=== PATIENT | male | born 1955 | race Caucasian/White ===

== ENCOUNTER 2019-01-07 18:18 | Emergency (ER) | payer MEDICAID, SELFPAY ==
[2019-01-07 18:20] VITALS: BP 130/77; PULSE 81; RESP 14; TEMP 36.6; O2SAT 97; BMI 25.9
--- NOTE | 2019-01-07 18:37 | ED.DCSUM_ITS ---
- ER Visit Summary Date of Service: 01/07/19 Chief Complaint: Right leg pain History of Present Illness: The patient is a 63 M who tells me he has had right leg pain for years. Is been getting worse over the past couple of months. He is concerned about a DVT. He had 1 of these a few years ago. He is not on any blood thinning medications currently. He does have a history of neuropathy he also has a history of sciatic problems. Is not sure which of these is causing his issues. He is here for an ultrasound today Physical Examination: Right leg exam reveals no tenderness. There is no swelling. He has no skin changes. No palpable cords. Test Results: None performed Emergency Department Course and Treatment: Ultrasound is not available at this time. After shared decision making, the patient requested Lovenox. He will be given 1 dose here. He will come back in the morning for an ultrasound Treatment Plan: [] Disposition: Discharge Impression: Right leg pain This note was generated with Super[employer] dictation software. It may contain incorrect words, spelling, and punctuation that were not noted in review of the chart prior to signing ED Disposition - Plan for ED Patient: Referrals: Rupali Fitzgerald MD [Primary Care Provider] -
--- NOTE | 2019-01-07 18:38 | ED.DEP ---
ED Disposition - Plan for ED Patient: Disposition: Home or Assisted Living Instructions: KNEE PAIN, Uncertain Cause Referrals: Rupali Fitzgerald MD [Primary Care Provider] -
[2019-01-07] MEDS: Enoxaparin 80 MG/0.8 ML Syringe SC (18:47)
[2019-01-07 19:00] VITALS: RESP 18
== END 2019-01-07 19:03 | disposition home or self-care (01) ==
LOC: ED 18:51
PROVIDERS: Emergency Provider Emergency Medicine; Family Provider Internal Medicine; PCP Internal Medicine
DX: M79.604 Pain in right leg (principal); G62.9 Polyneuropathy, unspecified; Z79.899 Other long term (current) drug therapy; Z86.718 Personal history of other venous thrombosis and embolism; Z86.711 Personal history of pulmonary embolism
CPT/HCPCS: 96372; 99282

== ENCOUNTER → 2019-01-08 11:07 | Outpatient (CLI) | payer MEDICAID, SELFPAY ==
[2019-01-07 18:20] VITALS: BMI 25.9
--- NOTE | 2019-01-08 11:15 | VDLE_ITS ---
Reason For Study: Pain RLE RIGHT LEFT GSV is normal. CFV is compressible, spontaneous, phasic, CFV is compressible, spontaneous, phasic, competent, and demonstrates normal competent and demonstrates normal augmentation. augmentation. FV is compressible, spontaneous, phasic, competent and demonstrates normal augmentation. POP V is compressible, spontaneous, phasic, competent and demonstrates normal augmentation. T/P Trunk is compressible. PTV is compressible. RT PerV is compressible. Procedure Exam performed in department. A preliminary report was called and/or faxed to ED. Interpretation Summary Deep veins of the right lower extremity are patent and compressible segmentally. There is no evidence of right lower extremity deep vein thrombosis. Valvular competence appears intact within the proximal deep venous system on the right . The right greater saphenous vein appears patent and compressible segmentally. Ordering Physician: Scot Yu Referring Physician: Rupali Fitzgerald Performed By: Keyonna Enrique, MAKENZIE, RVT
== END ==
PROVIDERS: Family Provider Internal Medicine; PCP Internal Medicine; Referring Provider Emergency Medicine; Visit Provider Emergency Medicine
DX: M79.604 Pain in right leg (principal)
CPT/HCPCS: 93971

== ENCOUNTER 2019-01-08 11:49 | Emergency (ER) | payer MEDICAID, SELFPAY ==
[2019-01-07 18:20] VITALS: BMI 25.9
[2019-01-08 11:50] VITALS: BP 142/83; PULSE 74; RESP 16; TEMP 36.4; O2SAT 97; BMI 25.7
--- NOTE | 2019-01-08 12:28 | ED.DCSUM_ITS ---
- ER Visit Summary Date of Service: 01/08/19 Chief Complaint: Left sciatica History of Present Illness: The patient is a 63 M who presents to the emergency department with left-sided sciatica. Chronic problem for him. He has had numerous back injuries in the past. He states that his left sciatica has been starting to act up and he wants to get it treated before it becomes unbearable. He states that in the past he has been given 2 shots of an unknown medication in the emergency department which is helped. He has Flexeril at home. Patient is a very poor historian and even when he pulls out his medication list tells me is not up-to-date and is not sure which of the medicines supposed to be on there which are not. Currently he denies any bowel or bladder dysfunction. No change in muscle strength or sensation of distal leg. No fevers. No rashes. Describes the pain as starting in the left low back traveling into the buttock and down posteriorly to the foot. He has had back injections in the past but none recently. Patient was seen here last night with right-sided leg pain which he states he was concerned he had a DVT. He came back today because he wanted to discuss the left sciatica Physical Examination: Afebrile vital signs are stable Gen: Well-nourished well-developed Head: Normocephalic atraumatic Eyes: Perrl EOMI ENT: TMs clear no rhinorrhea moist mucous membranes Neck: Supple no lymphadenopathy no JVD nontender CVS: Regular rate rhythm no murmurs normal S1-S2 Respiratory: No distress clear to auscultation bilaterally chest nontender Abdomen: Soft nontender nondistended normal bowel sounds no masses Back: Tender to palpation left lower lumbar left gluteal/piriformis region there is no erythema or rashes. No fluctuant masses. Extremity: Nontender no edema Skin: Normal color no rash Neuro: alert orientated ?3 CN II-XII intact normal strength sensation Psych: Blunted affect Emergency Department Course and Treatment: This point I do not see any obvious signs of abscess or infectious process. I do not see any evidence of cauda equina. He has no neurologic deficits only pain. Patient will be treated with Toradol and Norflex. He is to follow-up with his primary care physician. Impression: 1. Left sciatica This note was generated with [employer] dictation software. It may contain incorrect words, spelling, and punctuation that were not noted in review of the chart prio r to signing ED Disposition - Plan for ED Patient: Disposition: Home or Assisted Living Instructions: BACK PAIN w/ SCIATICA Referrals: Rupali Fitzgerald MD [Primary Care Provider] - 3-5 Days
[2019-01-08] MEDS: Ketorolac 60 MG/2 ML Vial IM (12:41)
[2019-01-08] MEDS: Orphenadrine 60 MG/2 ML Ampul IM (12:41)
== END 2019-01-08 13:07 | disposition home or self-care (01) ==
LOC: ED 12:55
PROVIDERS: Emergency Provider Emergency Medicine; Family Provider Internal Medicine; PCP Internal Medicine
DX: M54.42 Lumbago with sciatica, left side (principal); G89.29 Other chronic pain; Z79.899 Other long term (current) drug therapy
CPT/HCPCS: 93971; 96372; 99282

== ENCOUNTER 2019-01-22 16:02 | Emergency (ER) | payer MEDICAID, SELFPAY ==
[2019-01-22 16:03] VITALS: BP 132/83; PULSE 82; RESP 18; TEMP 37.1; O2SAT 96; BMI 26.4
--- NOTE | 2019-01-22 16:38 | ED.VIS.GEN ---
History of Present Illness Chief Complaint: Complaint Detail of Chief Complaint: Dysuria and hematuria Informant: Patient Onset: Today Current Severity: Mild Maximum Severity: Mild Narrative: Patient states he urinated around 3:00 this afternoon and had some difficulty getting his stream started. He did have some mild dysuria. When cleaning himself off he did note some blood on the toilet paper. He has a known history of small kidney stones in his kidneys but has not passed a kidney stone in quite some time. He has not had back pain. He also has a history of BPH. - Past Medical History (1) History of BPH Status: Chronic (2) History of chronic back pain Status: Chronic (3) History of depression Status: Chronic (4) History of gastroesophageal reflux (GERD) Status: Chronic (5) History of pulmonary embolism Status: Chronic (6) History of seizure disorder Status: Chronic Past Medical History - Allergies and Home Meds Allergies/Adverse Reactions: Allergies celecoxib [From Celebrex] Allergy (Verified 01/22/19 16:03) Other BLEEDING FROM MOUTH cisapride monohydrate [From Propulsid] Allergy (Verified 01/22/19 16:03) Unknown loratadine [From Claritin] Allergy (Verified 01/22/19 16:03) Other BLOOD IN MUCUS aspirin Adverse Reaction (Verified 01/22/19 16:03) Nausea/Vom/Diarrhea oseltamivir phosphate [From Tamiflu] Adverse Reaction (Verified 01/22/19 16:03) Nausea Primary Care Physician: Rupali Fitzgerald MD [Primary Care Provider] - 5-7 Days Priyank Felix II [NON-STAFF] - As Needed Prior records reviewed: Yes Past Medical History: - - Reviewed Lives: With Family Smoking Status: Unknown if ever smoked Review of Systems General: Denies: Chills, Fever Cardiovascular: Denies: Chest pain Respiratory: Denies: Dyspnea, Cough Gastrointestinal: Reports: Abdominal pain. Denies: Nausea, Vomiting, Diarrhea Genitourinary: Reports: Dysuria, Hematuria Musculoskeletal: Denies: Myalgias, Back pain Neurological: Denies: Headache Physical Exam Vital Signs/Narrative: Vital Signs Temp Pulse Resp BP Pulse Ox 01/22/19 16:03 98.8 F 82 18 132/83 H 96 General: Well nourished, Well developed ENT: Moist mucous membranes Cardiovascular: Regular rate, Regular rhythm Respiratory: No distress, CTA bilaterally Abdomen: Soft, Hypoactive bowel sounds, - - Intimal suprapubic tenderness to palpation. Back: Negative for: CVA tenderness Skin: Normal color Neurological: Alert, Oriented x3 Diagnostic/Tx/Re-eval Impressions Abdomen/Pelvis CT 01/22/19 18:36 IMPRESSION: No acute or concerning findings. No etiology for hematuria identified. Individualized dose optimization techniques were used for this CT. at 1923 Reported and signed by: Alessandro Bridges MD Electronically Signed: Alessandro Bridges, at 19:22 EDT Tel , Service support , 01/22/19 18:36 Abdomen/Pelvis without Cont [CT] Stat Laboratory Results 01/22/19 17:05 Urine Color Yellow Urine Clarity Sl. Cloudy Urine pH 7.0 Ur Specific [place] 1.015 Urine Protein Negative Urine Glucose (UA) Normal Urine Ketones Negative Urine Occult Blood 50 H Urine Nitrite Negative Urine Bilirubin Negative Urine Urobilinogen Normal Ur Leukocyte Esterase Negative Urine RBC 0-5 SEEN Urine WBC 0 SEEN Ur Squamous Epith Cells 0 SEEN Urine Bacteria 0 SEEN Urine Mucus 0 SEEN - Medical Decision Making Patient initially had urinalysis obtained and it was unremarkable. Postvoid bladder scan revealed no residual urine. Patient has been up ambulating to the restroom approximately 5 times during his ED stay. Patient was rather insistent that he needed a CAT scan to ensure he is not passing a kidney stone, although I explained to him multiple times that he was not having significant pain and it would not change our treatment if he did have a small stone. CT returns with no acute abnormalities. Patient was advised to follow-up with his urologist in [place]. ED Disposition - Plan for ED Patient: Disposition: Home or Assisted Living Diagnosis: Hematuria Instructions: Hematuria Referrals: Rupali Fitzgerald MD [Primary Care Provider] - 5-7 Days Priyank Felix II [NON-STAFF] - As Needed
[2019-01-22 17:14] LABS: Bacteria 0 SEEN /hpf (None Seen); Color, Urine Yellow (Yellow); Glucose, Dipstick Normal (Normal); Ketone-Dipstick Negative (Negative); Leukocyte Esterase-Dipstick Negative /ul (Negative); Mucous, Urine 0 SEEN /hpf (<or=2+); Nitrite-Dipstick Negative (Negative); Occult Blood-Urine 50 /ul (Negative); Protein-Dipstick Negative (Negative); Specific Gravity, Urine 1.015 (1.002-1.030); Squamous Epithelial Cells - UA 0 SEEN /hpf (0-5); Urine Bilirubin Dipstick Negative (Negative); Urine Clarity Sl. Cloudy (Clear); Urine Urobilinogen Normal (Normal); White Blood Cells 0 SEEN /hpf (0-5)
[2019-01-22 17:18] LABS: Red Blood Cells-Urine 0-5 SEEN /hpf (0-5)
--- NOTE | 2019-01-22 18:36 | CT_ITS ---
HISTORY: HEMATURIA TECHNIQUE: Helically acquired images were obtained of the abdomen and pelvis without oral or IV contrast. A radiation dose optimization technique was used for this scan. COMPARISON: None FINDINGS: # of images incl. paperwork: [id number] LOWER CHEST: No acute or concerning findings lung bases. LIVER: Homogeneous. No focal mass. GALLBLADDER AND BILIARY TREE: No calcified gallstones. No pericholecystic edema. No intra- or extrahepatic biliary ductal dilation. KIDNEYS AND URETERS: Normal renal size and position. No hydronephrosis. Incidental small cyst lower pole right kidney. ADRENAL GLANDS: Non-enlarged. SPLEEN: Normal size, no mass. PANCREAS: No pancreatic inflammation or mass. BOWEL: Normal appendix. No obstruction or inflammation of the bowel. Sigmoid colon diverticulosis, no diverticulitis. Small hiatal hernia contains a portion of the gastric fundus. LYMPH NODES: No enlarged mesenteric or retroperitoneal lymph nodes. PERITONEUM: No ascites or free air. No other fluid collection. VESSELS: No abdominal aortic aneurysm. URINARY BLADDER: Unremarkable. REPRODUCTIVE ORGANS: No pelvic masses.Prostate normal size. ABDOMINAL WALL: No concerning findings. Small left inguinal hernia contains fat but no bowel. BONES: No acute osseous abnormality. CT/Abdomen/Pelvis without Cont IMPRESSION: No acute or concerning findings. No etiology for hematuria identified. Individualized dose optimization techniques were used for this CT. at 1923 Reported and signed by: Alessandro Bridges MD Electronically Signed: Alessandro Bridges, at 19:22 EDT Tel , Service support ,
[2019-01-22 20:52] VITALS: BP 134/102; PULSE 72; RESP 20; O2SAT 98
[2019-01-22] MEDS: Acetaminophen 500 MG Tablet 1000 MG PO (21:00)
== END 2019-01-22 21:07 | disposition home or self-care (01) ==
PROVIDERS: Emergency Provider Emergency Medicine; Family Provider Internal Medicine; PCP Internal Medicine
DX: R31.9 Hematuria, unspecified (principal); F32.9 Major depressive disorder, single episode, unspecified; K21.9 Gastro-esophageal reflux disease without esophagitis; N40.0 Benign prostatic hyperplasia without lower urinary tract symptoms; G40.909 Epilepsy, unspecified, not intractable, without status epilepticus; Z87.442 Personal history of urinary calculi; Z79.899 Other long term (current) drug therapy
CPT/HCPCS: 74176; 81001; 99282

== ENCOUNTER 2019-01-31 18:42 | Emergency (ER) | payer MEDICAID, SELFPAY ==
[2019-01-31 18:43] VITALS: BP 128/85; PULSE 86; RESP 16; TEMP 36.8; O2SAT 96; BMI 26.3
--- NOTE | 2019-01-31 20:48 | ED.DCSUM_ITS ---
- ER Visit Summary Date of Service: 01/31/19 Chief Complaint: Chicken stuck in throat History of Present Illness: The patient is a 63 M presenting with sensation of chicken stuck in throat. Patient states that he was eating chicken. He was trying to chew his food into small pieces. He felt the chicken get stuck in his throat. He called EMS. On arrival he now feels that the chicken has passed. He has a history of previous esophageal strictures requiring dilation. He has seen Dr. Cohen in the past. Physical Examination: Vitals are stable. Patient is afebrile. Alert no acute distress. HEENT exam is unremarkable. Neck is supple. Lungs are clear and equal bilaterally. Heart is regular rate and rhythm. Abdomen is soft nontender nondistended. Extremities are unremarkable. Skin is warm and dry. No focal neurologic deficit. Remainder of exam is unremarkable. Emergency Department Course and Treatment: Patient is able to tolerate p.o. He is now requesting discharge home. Advised to follow-up with his primary care physician. Advised to return to ED for worsening complaints. Disposition: Discharge home Impression: Esophageal foreign body, resolved This note was generated with [employer]ner dictation software. It may contain incorrect words, spelling, and punctuation that were not noted in review of the chart prior to signing ED Disposition - Plan for ED Patient: Disposition: Home or Assisted Living Instructions: ESOPHAGEAL FOREIGN BODY, Resolved Referrals: Rupali Fitzgerald MD [Primary Care Provider] -
--- NOTE | 2019-01-31 20:49 | ED.DEP ---
ED Disposition - Plan for ED Patient: Instructions: ESOPHAGEAL FOREIGN BODY, Resolved Referrals: Rupali Fitzgerald MD [Primary Care Provider] -
[2019-01-31 21:16] VITALS: BP 131/76; PULSE 81; RESP 18; O2SAT 97
--- NOTE | 2019-01-31 21:19 | ED.RN ---
THIS NURSE IN THE ROOM TO D/C PT. PT STATES WHAT DO YOU WANT I'M ON THE PHONE. THIS NURSE REVIEWED D/C INSTRUCTIONS WITH PT. PT VERBALIZED UNDERSTANDING OF INSTRUCTIONS. PT DENIES FURTHER NEEDS OR QUESTIONS AT THIS TIME
== END 2019-01-31 21:20 | disposition home or self-care (01) ==
PROVIDERS: Emergency Provider Emergency Medicine; Family Provider Internal Medicine; PCP Internal Medicine
DX: R09.89 Other specified symptoms and signs involving the circulatory and respiratory systems (principal); K22.2 Esophageal obstruction; Z79.899 Other long term (current) drug therapy
CPT/HCPCS: 99282

== ENCOUNTER → 2019-02-16 08:31 | Outpatient (CLI) | payer MEDICAID, SELFPAY ==
[2019-02-10 15:31] VITALS: BMI 26.3
--- NOTE | 2019-02-16 08:35 | RAD_ITS ---
STUDY: AIR CONTRAST UPPER GI SERIES . REASON FOR EXAM: Male, 63 years old. History of a prior is esophageal stricture with the dilatation. Hiatal hernia. FLUOROSCOPY TIME (if supplied): (0:55) minutes/seconds. 18 images were obtained. TECHNIQUE: SINGLE CONTRAST AND AIR CONTRAST FLUOROSCOPIC IMAGES. COMPARISON: None. FINDINGS: The cervical esophagus demonstrates normal motility without aspiration. Tertiary contractions of the mid and distal esophagus. There is no stricture or extrinsic mass effect. No intraluminal polypoid mass is identified. The patient was not able to ingest a 12 mm tablet of barium. The thoracic esophagus distends well without stricture or mucosal fold thickening. No mucosal ulcerations are identified. There is no extrinsic mass effect. There are no diverticula. No hiatal hernia or gastroesophageal reflux was identified. The stomach distends well without mucosal fold thickening or mucosal ulceration. There is no intraluminal mass. The duodenal bulb is freely distensible without deformity or ulceration. The duodenal sweep is normal in position and caliber. RAD/Upper GI w/BA Swallow IMPRESSION: Tertiary contractions of the mid and distal esophagus. No evidence of stricture formation. The patient was unable to ingest the 12 mm tablet of barium. Electronically Signed: Elmer Armenta, at 10:18 EDT , Service support ,
== END ==
PROVIDERS: Family Provider Internal Medicine; PCP Internal Medicine; Referring Provider Surgery; Visit Provider Surgery
DX: R13.10 Dysphagia, unspecified (principal); Z87.19 Personal history of other diseases of the digestive system
CPT/HCPCS: 74246

== ENCOUNTER → 2019-03-09 11:53 | Outpatient (CLI) | payer MEDICAID, SELFPAY ==
[2019-02-10 15:31] VITALS: BMI 26.3
[2019-03-12 23:12] LABS: Alternaria tenuis <0.10 kU/L (Class 0); Apple <0.10 kU/L (Class 0); Ash, White <0.10 kU/L (Class 0); Aspergillus fumigatus <0.10 kU/L (Class 0); Beef <0.10 kU/L (Class 0); Bermuda Grass <0.10 kU/L (Class 0); Birch <0.10 kU/L (Class 0); Black Walnut <0.10 kU/L (Class 0); Carrot <0.10 kU/L (Class 0); Cat Hair / Dander,Stand <0.10 kU/L (Class 0); Cedar, Mountain <0.10 kU/L (Class 0); Chicken <0.10 kU/L (Class 0); Cladosporium herbarum <0.10 kU/L (Class 0); Cockroach, American 0.21 kU/L (Class 0/I); Cottonwood <0.10 kU/L (Class 0); D farinae Mite <0.10 kU/L (Class 0); D pteronyssinus <0.10 kU/L (Class 0); Dog Epithelia <0.10 kU/L (Class 0); Egg, Whole <0.10 kU/L (Class 0); Elm, American White <0.10 kU/L (Class 0); Garlic <0.10 kU/L (Class 0); Gluten <0.10 kU/L (Class 0); Immunoglobulin E 42 IU/mL (6-495); Maple/Box Elder <0.10 kU/L (Class 0); Mulberry, White <0.10 kU/L (Class 0); Oak, White <0.10 kU/L (Class 0); Oat <0.10 kU/L (Class 0); Onion <0.10 kU/L (Class 0); Pea <0.10 kU/L (Class 0); Pecan <0.10 kU/L (Class 0); Penicillium Notatum <0.10 kU/L (Class 0); Pigweed, Rough <0.10 kU/L (Class 0); Potato, White <0.10 kU/L (Class 0); Ragweed, Short/Common <0.10 kU/L (Class 0); Rice <0.10 kU/L (Class 0); Russian Thistle <0.10 kU/L (Class 0); SESAME SEED <0.10 kU/L (Class 0); Sheep Sorrel <0.10 kU/L (Class 0); Strawberry <0.10 kU/L (Class 0); Sycamore, American <0.10 kU/L (Class 0); Timothy Grass <0.10 kU/L (Class 0); Tomato <0.10 kU/L (Class 0); Tuna <0.10 kU/L (Class 0); Wheat <0.10 kU/L (Class 0)
[2019-03-13 10:09] LABS: Milk (Cow) 0.16 kU/L (Class 0/I); Mouse Urine <0.10 kU/L (Class 0); Turkey <0.10 kU/L (Class 0)
== END ==
PROVIDERS: Family Provider Internal Medicine; PCP Internal Medicine; Referring Provider Otolaryngology Otolaryngology/Facial Plastic Surgery; Visit Provider Otolaryngology Otolaryngology/Facial Plastic Surgery
DX: T78.40XA Allergy, unspecified, initial encounter (principal)
CPT/HCPCS: 36415; 82785; 86003

== ENCOUNTER 2021-10-13 23:02 | Emergency (ER) | payer MEDICAID, SELFPAY ==
[2021-10-13 23:03] VITALS: BP 148/82; PULSE 81; RESP 17; TEMP 36.6; O2SAT 96; BMI 26.7
--- NOTE | 2021-10-13 23:18 | EX.ED.GUMALE ---
HPI History of Present Illness Chief Complaint: Complaint Narrative Narrative: 66-year-old male presenting with dysuria and hematuria. He states this started earlier today. Has had a couple of episodes of this. Patient does not feel ill. He has no flank pain or abdominal pain. He states he is eating and drinking normally. Is making normal urine and stool. He states he is on Eliquis for history of DVT in the right leg. He does not have history of UTIs. No history of kidney stones. [facility] Medical History GERD (gastroesophageal reflux disease) History of BPH History of chronic back pain History of depression History of gastroesophageal reflux (GERD) History of pulmonary embolism History of seizure disorder Home Medications cholecalciferol (vitamin D3) 1,000 unit PO DAILY 08/11/13 [History Last Taken Unknown] esomeprazole magnesium 20 mg PO BID 08/11/13 [History Last Taken Unknown] loperamide 2 mg PO Q4H PRN PRN 08/11/13 [History Last Taken Unknown] lovastatin 40 mg PO QHS 08/11/13 [History Last Taken Unknown] oxybutynin chloride 10 mg PO DAILY 08/11/13 [History Last Taken Unknown] phenytoin 100 mg PO TID 08/11/13 [History Last Taken 06/01/16 23:00] tamsulosin 0.4 mg PO DAILY 08/11/13 [History Last Taken Unknown] albuterol sulfate 2 puff INHALATION TID PRN 04/01/15 [History Last Taken 06/02/16 07:00] cyclobenzaprine 10 mg PO TID PRN #20 tab 03/01/16 [Rx Last Taken Unknown] loratadine 10 mg PO DAILY 03/01/16 [History Last Taken Unknown] ketotifen fumarate 1 - 2 drp EACH EYE BID 04/08/16 [History Last Taken Unknown] tobramycin-dexamethasone 1 drp EACH EYE PRN PRN 04/08/16 [History Last Taken Unknown] fluticasone propionate 2 puff INHALATION DAILY 04/21/16 [History Last Taken 06/02/16 07:00] benzonatate 100 mg PO TID PRN PRN 05/29/16 [History Last Taken Unknown] duloxetine 30 mg PO DAILY 12/31/16 [History Last Taken Unknown] cephalexin 500 mg PO Q12 #14 cap 10/14/21 [Rx Last Taken Unknown] Allergy/AdvReac Type Severity Reaction Status Date / Time celecoxib [From Celebrex] Allergy Other Verified 10/13/21 23:07 cisapride monohydrate Allergy Unknown Verified 10/13/21 23:07 [From Propulsid] loratadine [From Claritin] Allergy Other Verified 10/13/21 23:07 salsalate Allergy Vomiting Verified 10/13/21 23:07 aspirin AdvReac Nausea/Vom/ Verified 10/13/21 23:07 Diarrhea nabumetone [From Relafen] AdvReac Nausea Verified 10/13/21 23:08 oseltamivir phosphate AdvReac Nausea Verified 10/13/21 23:07 [From Tamiflu] Family History Brother Asthma Diabetes CAD (coronary artery disease) Seizures CVA (cerebral vascular accident) Mother Diabetes Surgical History s/p egd with dilitation S/P hemorrhoidectomy S/P tonsillectomy and adenoidectomy Social History Smoking Status: Never smoker alcohol intake: never ROS ROS ED Constitutional Constitutional ED: Denies chills or fever(s) Eyes Eyes: Denies blurry vision or change in vision ENT ENT ED: Denies rhinorrhea or sore throat Cardiovascular Cardiovascular: Denies chest pain or palpitations Respiratory/Chest Respiratory/Chest: Denies cough or dyspnea Gastrointestinal Gastrointestinal: Denies abdominal pain, diarrhea, nausea or vomiting Genitourinary Genitourinary ED: Reports dysuria, hematuria and urinary frequency Musculoskeletal Musculoskeletal: Denies arthralgias, back pain or myalgias Integumentary Denies rash Neurologic Neurologic: Denies headache(s) or paresthesias Psychiatric Psychiatric: Denies anxiety or depression EXAM Physical Exam Const Vital Signs: 10/13/21 23:03 Temperature 97.8 F Temperature Source Temporal Pulse Rate 81 Respiratory Rate 17 Blood Pressure 148/82 H Blood Pressure Mean 104 Pulse Ox 96 Oxygen Delivery Method Room Air Positive well nourished General Appearance ED: NAD; Negative for pallor HEENT Reports moist mucous membranes normocephalic and atraumatic Eyes PERRL and EOMs intact bilaterally Resp normal respiratory effort and clear to auscultation bilaterally Cardio regular rate and regular rhythm GI Palpation: soft no CVA tenderness Neuro oriented x3 and CN's II-XII intact bilaterally Sensorium / Orientation: alert Psych mental status grossly normal Skin General Skin Exam: Negative for jaundice or pallor MDM MDM MDM Narrative Medical decision making narrative: Patient with dysuria and mild hematuria. He does have urinary frequency as well. He does not have any flank or back pain. He does not feel ill. He does not have any nausea or diaphoresis. No history of kidney stones. No history of UTI. Urinalysis shows 10 occult blood, 0-5 WBCs with some contamination and 1+ bacteria. Since the patient is symptomatic I will send a urine culture and start him on Keflex. Clinically does not appear to have a kidney stone. He will need to follow-up with his primary care to ensure resolution. Impression: 1. Hematuria 2. Dysuria 3. Bladder infection Lab Data Labs: Laboratory Results - last 24 hr 10/14/21 00:10 Urine Color Yellow Urine Clarity Clear Urine pH 6.0 Ur Specific [place] 1.020 Urine Protein Negative Urine Glucose (UA) Normal Urine Ketones Negative Urine Occult Blood 10 H Urine Nitrite Negative Urine Bilirubin Negative Urine Urobilinogen Normal Ur Leukocyte Esterase Negative Urine RBC 0 SEEN Urine WBC 0-5 SEEN Ur Squamous Epith Cells 0-5 SEEN Urine Bacteria 1+ Urine Mucus 0 SEEN Discharge Plan Triage Chief Complaint: Complaint ED Provider: Lincoln Cruz Dx/Rx/DC Orders Instructions: ED Bladder Infection, Male (Adult) Prescriptions: New cephalexin 500 mg capsule 500 mg PO Q12 Qty: 14 RF: 0 No Action loperamide 2 MG capsule 2 mg PO Q4H PRN PRN (Reason: Diarrhea) RF: 0 phenytoin 50 MG tablet,chewable 100 mg PO TID RF: 0 tamsulosin 0.4 MG capsule 0.4 mg PO DAILY RF: 0 esomeprazole magnesium 40 MG capsule 20 mg PO BID RF: 0 lovastatin 20 MG tablet 40 mg PO QHS RF: 0 oxybutynin chloride 5 MG tablet 10 mg PO DAILY RF: 0 cholecalciferol (vitamin D3) 1,000 UNIT capsule 1,000 unit PO DAILY RF: 0 albuterol sulfate 1 INHALER inhaler 2 puff inhalation TID PRN (Reason: Sob &/Or Wheezing) RF: 0 loratadine 10 MG tablet 10 mg PO DAILY RF: 0 cyclobenzaprine 10 MG tablet 10 mg PO TID PRN (Reason: Muscle Spasm) Qty: 20 RF: 0 fluticasone propionate 1 INHALER inhaler 2 puff inhalation DAILY RF: 0 ketotifen fumarate 5 ML drops 1 - 2 drp EACH EYE BID RF: 0 tobramycin-dexamethasone 1 DROP drops,suspension 1 drp EACH EYE PRN PRN (Reason: irritation) RF: 0 benzonatate 100 MG capsule 100 mg PO TID PRN PRN (Reason: Cough) RF: 0 duloxetine 30 MG capsule,delayed release(DR/EC) 30 mg PO DAILY RF: 0 Primary Care Provider: Rupali Fitzgerald Referrals: Rupali Fitzgerald MD [Primary Care Provider] - Disposition Disposition: Home, Self Care
[2021-10-14 00:24] LABS: Mucous, Urine 0 SEEN /hpf (<or=2+); Red Blood Cells-Urine 0 SEEN /hpf (0-5)
[2021-10-14 00:27] LABS: Color, Urine Yellow (Yellow); Glucose, Dipstick Normal (Normal); Ketone-Dipstick Negative (Negative); Leukocyte Esterase-Dipstick Negative /ul (Negative); Nitrite-Dipstick Negative (Negative); Occult Blood-Urine 10 /ul (Negative); Protein-Dipstick Negative (Negative); Urine Bilirubin Dipstick Negative (Negative); Urine Clarity Clear (Clear); Urine Urobilinogen Normal (Normal)
[2021-10-14 00:54] LABS: Bacteria 1+ /hpf (None Seen); Squamous Epithelial Cells - UA 0-5 SEEN /hpf (0-5); White Blood Cells 0-5 SEEN /hpf (0-5)
[2021-10-14 01:21] VITALS: RESP 17
[2021-10-14] MEDS: Cephalexin 250 MG Capsule 500 MG PO (01:27)
[2021-10-14 01:29] VITALS: PULSE 74; RESP 16; TEMP 36.9; O2SAT 99
== END 2021-10-14 01:29 | disposition home or self-care (01) ==
PROVIDERS: Emergency Provider Student in an Organized Health Care Education/Training Program; PCP Internal Medicine; Visit Provider Student in an Organized Health Care Education/Training Program
DX: N30.91 Cystitis, unspecified with hematuria (principal); N40.1 Benign prostatic hyperplasia with lower urinary tract symptoms; R35.0 Frequency of micturition; K21.9 Gastro-esophageal reflux disease without esophagitis; G89.29 Other chronic pain; Z79.01 Long term (current) use of anticoagulants; Z79.899 Other long term (current) drug therapy; Z86.711 Personal history of pulmonary embolism; Z86.718 Personal history of other venous thrombosis and embolism
CPT/HCPCS: 81001; 87086; 99283

== ENCOUNTER 2022-08-23 14:47 | Emergency (ER) | payer MEDICAID, SELFPAY ==
[2022-08-23 14:49] VITALS: BP 153/80; PULSE 83; RESP 18; TEMP 36.7; O2SAT 96; BMI 27.3
[2022-08-23] MEDS: Mag Hydrox/Al Hydrox/Simeth 30 ML UDC PO (15:35)
[2022-08-23] MEDS: Pantoprazole Sodium 40 MG Tablet PO (15:35)
--- NOTE | 2022-08-23 15:43 | EDS_ITS ---
HPI History of Present Illness Chief Complaint: Foreign Body Informant: patient and EMS Onset/Context/Timing Onset: Hours (1-2) Context: Sudden Onset Timing: Continuous Quality: stuck/discomfort Location: lower mid-chest Current Severity: Mild Maximum Severity: Severe Worsened by: nothing Relieved by: nothing in particular Narrative Narrative: Patient states he was seen in [place] and he felt like so mething got stuck in his lower esophagus. No coughing choking acute dyspnea. States he has had this happen before, and states he has symptoms daily similar to this but not as bad, with eating. He states as a result of all of this he has had esophagus dilatations in the past but the last one was maybe 2 years ago. He sees a GI specialist in [place] with . He states prior to coming here by EMS after an hour or 2 of symptoms, he has drink some water and not vomited it up. [facility] Medical History GERD (gastroesophageal reflux disease) History of BPH History of chronic back pain History of depression History of gastroesophageal reflux (GERD) History of pulmonary embolism History of seizure disorder Home Medications cholecalciferol (vitamin D3) 25 mcg (1,000 unit) capsule 1,000 unit PO DAILY 08/11/13 [History Last Taken Unknown] esomeprazole magnesium 40 mg capsule,delayed release 20 mg PO BID 08/11/13 [History Last Taken Unknown] loperamide 2 mg capsule 2 mg PO Q4H PRN PRN Diarrhea 08/11/13 [History Last Taken Unknown] lovastatin 20 mg tablet 40 mg PO QHS 08/11/13 [History Last Taken Unknown] oxybutynin chloride 5 mg tablet 10 mg PO DAILY 08/11/13 [History Last Taken Unknown] phenytoin 50 mg chewable tablet 100 mg PO TID 08/11/13 [History Last Taken 06/01/16 23:00] tamsulosin 0.4 mg capsule 0.4 mg PO DAILY 08/11/13 [History Last Taken Unknown] albuterol sulfate 90 mcg/actuation aerosol inhaler 2 puff inhalation TID PRN Sob &/Or Wheezing 04/01/15 [History Last Taken 06/02/16 07:00] cyclobenzaprine 10 mg tablet 10 mg PO TID PRN Muscle Spasm #20 tabs 03/01/16 [Rx Last Taken Unknown] loratadine 10 mg tablet 10 mg PO DAILY 03/01/16 [History Last Taken Unknown] ketotifen fumarate 0.025 % (0.035 %) eye drops 1 - 2 drp EACH EYE BID 04/08/16 [History Last Taken Unknown] tobramycin 0.3 %-dexamethasone 0.1 % eye drops,suspension 1 drp EACH EYE PRN PRN irritation 04/08/16 [History Last Taken Unknown] fluticasone propionate 220 mcg/actuation HFA aerosol inhaler 2 puff inhalation DAILY 04/21/16 [History Last Taken 06/02/16 07:00] benzonatate 100 mg capsule 100 mg PO TID PRN PRN Cough 05/29/16 [History Last Taken Unknown] duloxetine 30 mg capsule,delayed release 30 mg PO DAILY 12/31/16 [History Last Taken Unknown] cephalexin 500 mg capsule 500 mg PO Q12 #14 caps 10/14/21 [Rx Last Taken Unknown] Allergy/AdvReac Type Severity Reaction Status Date / Time celecoxib [From Celebrex] Allergy Other Verified 08/23/22 14:48 cisapride monohydrate Allergy Unknown Verified 08/23/22 14:48 [From Propulsid] loratadine [From Claritin] Allergy Other Verified 08/23/22 14:48 salsalate Allergy Vomiting Verified 08/23/22 14:48 aspirin AdvReac Nausea/Vom/ Verified 08/23/22 14:48 Diarrhea nabumetone [From Relafen] AdvReac Nausea Verified 08/23/22 14:48 oseltamivir phosphate AdvReac Nausea Verified 08/23/22 14:48 [From Tamiflu] Family History Brother Asthma Diabetes CAD (coronary artery disease) Seizures CVA (cerebral vascular accident) Mother Diabetes Surgical History s/p egd with dilitation S/P hemorrhoidectomy S/P tonsillectomy and adenoidectomy Social History Smoking Status: Never smoker alcohol intake: never ROS ROS ED Constitutional Constitutional ED: Denies chills or fever(s) Cardiovascular Cardiovascular: Reports as per HPI and other Details: Chest pain as a result of esophagus discomfort Respiratory/Chest Respiratory/Chest: Denies cough or dyspnea Gastrointestinal Gastrointestinal: Reports vomiting; Denies abdominal pain or nausea Neurologic Neurologic: Denies headache(s), paresthesias or weakness EXAM Physical Exam Const Vital Signs: 08/23/22 14:49 08/23/22 14:51 Temperature 98.0 F Temperature Source Temporal Pulse Rate 83 Respiratory Rate 18 Respiratory Effort Normal Respiratory Pattern Normal Blood Pressure 153/80 H Blood Pressure Mean 104 Pulse Ox 96 Oxygen Delivery Method Room Air Positive well nourished and well developed General Appearance ED: well developed and NAD HEENT Reports moist mucous membranes Throat: posterior oropharynx normal Chest Wall inspection of chest normal and palpation of chest normal Resp normal respiratory effort and clear to auscultation bilaterally Cardio regular rate, regular rhythm and no murmurs Rate: Negative for tachycardic GI normal to inspection, nondistended, normoactive bowel sounds and non-tender Neuro oriented x3, CN's II-XII intact bilaterally, no sensory deficits noted and gait normal Psych Mood & Affect: anxious Skin no rashes or lesions noted and no wounds MDM MDM MDM Narrative Medical decision making narrative: Patient was able to drink some large gulps of Sprite without vomiting. We then gave him a GI cocktail and Protonix with some water. He drank those down without any difficulty and did feel little better. At this time he does not need emergency EGD. Discussed liquid diet and follow-up with his GI specialist, I gave him the name of ours as well if he wants. Discharge Plan Triage Chief Complaint: Foreign Body ED Provider: Carlos Cruz Dx/Rx/DC Orders Clinical Impression: Esophageal obstruction due to food impaction Instructions: ED Esophageal Foreign Body, Resolved, ED Full Liquid Diet Prescriptions: No Action loperamide 2 MG capsule 2 mg PO Q4H PRN PRN (Reason: Diarrhea) phenytoin 50 MG tablet,chewable 100 mg PO TID tamsulosin 0.4 MG capsule 0.4 mg PO DAILY esomeprazole magnesium 40 MG capsule 20 mg PO BID lovastatin 20 MG tablet 40 mg PO QHS Label Comments: CHOLESTEROL oxybutynin chloride 5 MG tablet 10 mg PO DAILY cholecalciferol (vitamin D3) 1,000 UNIT capsule 1,000 unit PO DAILY albuterol sulfate 1 INHALER inhaler 2 puff inhalation TID PRN (Reason: Sob &/Or Wheezing) loratadine 10 MG tablet 10 mg PO DAILY cyclobenzaprine 10 MG tablet 10 mg PO TID PRN (Reason: Muscle Spasm) Qty: 20 0RF fluticasone propionate 1 INHALER inhaler 2 puff inhalation DAILY ketotifen fumarate 5 ML drops 1 - 2 drp EACH EYE BID tobramycin-dexamethasone 1 DROP drops,suspension 1 drp EACH EYE PRN PRN (Reason: irritation) benzonatate 100 MG capsule 100 mg PO TID PRN PRN (Reason: Cough) duloxetine 30 MG capsule,delayed release(DR/EC) 30 mg PO DAILY cephalexin 500 mg capsule 500 mg PO Q12 Qty: 14 0RF Primary Care Provider: Rupali Fitzgerald Referrals: Rupali Fitzgerald MD [Primary Care Provider] - Friend,DO Isidro [Med Staff - Active Staff] - As soon as possible (Or your own GI DrAllen) Disposition Disposition: Home, Self Care
[2022-08-23 15:53] VITALS: BP 128/78; PULSE 78; RESP 16; TEMP 36.6; O2SAT 99
== END 2022-08-23 16:07 | disposition home or self-care (01) ==
PROVIDERS: Emergency Provider Emergency Medicine; PCP Internal Medicine; Visit Provider Emergency Medicine
DX: T18.128A Food in esophagus causing other injury, initial encounter (principal); R07.9 Chest pain, unspecified; K22.2 Esophageal obstruction; X58.XXXA Exposure to other specified factors, initial encounter
CPT/HCPCS: 99285

== ENCOUNTER 2022-09-05 08:40 | Emergency (ER) | payer MEDICAID, SELFPAY ==
[2022-09-05 08:41] VITALS: BP 154/82; PULSE 76; RESP 15; TEMP 36.7; O2SAT 98; BMI 27.5
--- NOTE | 2022-09-05 09:16 | EX.ED.VIS.UR ---
HPI HPI - URI History of Present Illness Chief Complaint: Ear Problem Detail of Chief Complaint: Decreased hearing left ear due to impacted earwax. Informant: patient Onset/Context/Timing Onset: Days Context: Gradual Onset Timing: Continuous Current Severity: Mild Maximum Severity: Mild Narrative Narrative: 66-year-old male history of excessive earwax in the past. He has been using eardrops but says he is having trouble hearing out of his left ear with some mild discomfort. Denies any drainage charge. He has had this happen before with excessive wax. Prior similar symptoms: Yes Recent Illness/Hospitalization: No ROS ROS ED ROS Narrative Denies recent illness. Review of Systems ROS Unobtainable: Denies due to encephalopathy Constitutional Constitutional ED: Denies chills or fever(s) Eyes Eyes: Denies blurry vision ENT ENT ED: Reports ear pain; Denies rhinorrhea or sore throat Cardiovascular Cardiovascular: Denies chest pain Respiratory/Chest Respiratory/Chest: Denies cough Gastrointestinal Gastrointestinal: Denies abdominal pain Genitourinary Genitourinary ED: Denies dysuria Musculoskeletal Musculoskeletal: Denies arthralgias Integumentary Denies abscess Neurologic Neurologic: Denies headache(s) Psychiatric Psychiatric: Denies anxiety Endocrine Endocrinology: Denies cold intolerance Hematologic/Lymphatic Hematologic/Lymphatic: Denies easy bleeding Allergic/Immunologic Allergic/Immunologic ED: Denies mouth swelling or tongue swelling [facility] Medical History GERD (gastroesophageal reflux disease) History of BPH History of chronic back pain History of depression History of gastroesophageal reflux (GERD) History of pulmonary embolism History of seizure disorder Home Medications cholecalciferol (vitamin D3) 25 mcg (1,000 unit) capsule 1,000 unit PO DAILY 08/11/13 [History Last Taken Unknown] esomeprazole magnesium 40 mg capsule,delayed release 20 mg PO BID 08/11/13 [History Last Taken Unknown] loperamide 2 mg capsule 2 mg PO Q4H PRN PRN Diarrhea 08/11/13 [History Last Taken Unknown] lovastatin 20 mg tablet 40 mg PO QHS 08/11/13 [History Last Taken Unknown] oxybutynin chloride 5 mg tablet 10 mg PO DAILY 08/11/13 [History Last Taken Unknown] phenytoin 50 mg chewable tablet 100 mg PO TID 01/24/14 [History Last Taken 06/01/16 23:00] tamsulosin 0.4 mg capsule 0.4 mg PO DAILY 08/11/13 [History Last Taken Unknown] albuterol sulfate 90 mcg/actuation aerosol inhaler 2 puff inhalation TID PRN Sob &/Or Wheezing 04/01/15 [History Last Taken 06/02/16 07:00] cyclobenzaprine 10 mg tablet 10 mg PO TID PRN Muscle Spasm #20 tabs 03/01/16 [Rx Last Taken Unknown] loratadine 10 mg tablet 10 mg PO DAILY 03/01/16 [History Last Taken Unknown] ketotifen fumarate 0.025 % (0.035 %) eye drops 1 - 2 drp EACH EYE BID 04/08/16 [History Last Taken Unknown] tobramycin 0.3 %-dexamethasone 0.1 % eye drops,suspension 1 drp EACH EYE PRN PRN irritation 04/08/16 [History Last Taken Unknown] fluticasone propionate 220 mcg/actuation HFA aerosol inhaler 2 puff inhalation DAILY 04/21/16 [History Last Taken 06/02/16 07:00] benzonatate 100 mg capsule 100 mg PO TID PRN PRN Cough 05/29/16 [History Last Taken Unknown] duloxetine 30 mg capsule,delayed release 30 mg PO DAILY 12/31/16 [History Last Taken Unknown] cephalexin 500 mg capsule 500 mg PO Q12 #14 caps 10/14/21 [Rx Last Taken Unknown] Allergy/AdvReac Type Severity Reaction Status Date / Time celecoxib [From Celebrex] Allergy Other Verified 09/05/22 08:43 cisapride monohydrate Allergy Unknown Verified 09/05/22 08:43 [From Propulsid] loratadine [From Claritin] Allergy Other Verified 09/05/22 08:43 salsalate Allergy Vomiting Verified 09/05/22 08:43 aspirin AdvReac Nausea/Vom/ Verified 09/05/22 08:43 Diarrhea nabumetone [From Relafen] AdvReac Nausea Verified 09/05/22 08:43 oseltamivir phosphate AdvReac Nausea Verified 09/05/22 08:43 [From Tamiflu] Family History Brother Asthma Diabetes CAD (coronary artery disease) Seizures CVA (cerebral vascular accident) Mother Diabetes Surgical History s/p egd with dilitation S/P hemorrhoidectomy S/P tonsillectomy and adenoidectomy Social History Smoking Status: Never smoker alcohol intake: never EXAM Physical Exam Narrative Exam Narrative: 66-year-old male vital signs stable afebrile. Does not look septic toxic or in distress. H EENT exam small wax in the right being still see his eardrum. Left ear canal is impacted and completely obstructed by wax. Posterior pharynx unremarkable. Neck nontender no lymphadenopathy. Lungs clear to auscultation. Heart regular rhythm. Otherwise exam unremarkable. Const Vital Signs: 09/05/22 08:41 Temperature 98.0 F Temperature Source Temporal Pulse Rate 76 Respiratory Rate 15 Blood Pressure 154/82 H Blood Pressure Mean 106 Pulse Ox 98 Oxygen Delivery Method Room Air Positive well nourished and well developed; Negative for obese or contractures General Appearance ED: well developed and NAD; Negative for contractures, cyanotic, diaphoretic or pallor Nutritional Appearance: Negative for obese HEENT Reports moist mucous membranes; Denies dry mucous membranes normocephalic and atraumatic; Negative for scalp tenderness Face and Sinus: Negative for sinus tenderness Mouth ED: No dry mucous membranes Mouth: No dry mucous membranes Throat: posterior oropharynx normal; Negative for tonsils abnormal Eyes PERRL and EOMs intact bilaterally General Eye ED: Negative for pale conjunctiva or scleral icterus Neck no lymphadenopathy, supple, no meningeal signs and no JVD General: Negative for anterior neck swelling or lymphadenopathy Resp normal respiratory effort and clear to auscultation bilaterally Effort and Inspection: Negative for retractions Auscultation: Negative for rales, rhonchi or wheezes Cardio S1 normal heart sound, S2 normal heart sound and no murmurs Rate: regular rate Rhythm: regular rhythm GI non-tender, non-distended and no masses Inspection: Negative for abdominal distention Auscultation: normoactive bowel sounds Palpation: soft; Negative for tender or guarding Back/Spine no CVA tenderness and normal ROM General Back: Negative for CVA tenderness Cervical Spine: Negative for cervical spine tenderness Thoracic Spine / Upper Back: Negative for thoracic spinal tenderness Lumbar Spine / Lower Back: Negative for lumbar spinal tenderness Sacrum: Negative for tenderness Extremity normal to inspection and full ROM General Extremety ED: Negative for cyanosis, tenderness or other findings General Extremity: Negative for cyanosis or other findings Neuro oriented x3 and CN's II-XII intact bilaterally Sensorium / Orientation: alert, oriented to person, oriented to place and oriented to time; Negative for orientation impaired, lethargic or stuporous Motor Exam: strength 5/5 throughout Psych mental status grossly normal Appearance: Negative for other Attitude: No agitated Mood & Affect: Negative for depressed, anxious or tearful Skin General Skin Exam: Negative for jaundice or pallor Lesions: no lesions Rashes: no rashes MDM MDM MDM Narrative Medical decision making narrative: 66-year-old male left ear canal cerumen impaction. Will attempt to irrigated out. It does appear to be the sticky type of wax which may be more difficult for unable to resolve this will have him follow-up with ENT to have the earwax irrigated. Discharge Plan Triage Chief Complaint: Ear Problem ED Provider: Kendall Juan Dx/Rx/DC Orders Clinical Impression: Hearing loss of left ear due to cerumen impaction, Excess ear wax Instructions: Impacted Earwax Prescriptions: No Action loperamide 2 MG capsule 2 mg PO Q4H PRN PRN (Reason: Diarrhea) phenytoin 50 MG tablet,chewable 100 mg PO TID tamsulosin 0.4 MG capsule 0.4 mg PO DAILY esomeprazole magnesium 40 MG capsule 20 mg PO BID lovastatin 20 MG tablet 40 mg PO QHS Label Comments: CHOLESTEROL oxybutynin chloride 5 MG tablet 10 mg PO DAILY cholecalciferol (vitamin D3) 1,000 UNIT capsule 1,000 unit PO DAILY albuterol sulfate 1 INHALER inhaler 2 puff inhalation TID PRN (Reason: Sob &/Or Wheezing) loratadine 10 MG tablet 10 mg PO DAILY cyclobenzaprine 10 MG tablet 10 mg PO TID PRN (Reason: Muscle Spasm) Qty: 20 0RF fluticasone propionate 1 INHALER inhaler 2 puff inhalation DAILY ketotifen fumarate 5 ML drops 1 - 2 drp EACH EYE BID tobramycin-dexamethasone 1 DROP drops,suspension 1 drp EACH EYE PRN PRN (Reason: irritation) benzonatate 100 MG capsule 100 mg PO TID PRN PRN (Reason: Cough) duloxetine 30 MG capsule,delayed release(DR/EC) 30 mg PO DAILY cephalexin 500 mg capsule 500 mg PO Q12 Qty: 14 0RF Primary Care Provider: Rupali Fitzgerald Referrals: Rupali Fitzgerald MD [Primary Care Provider] - Maximiliano Guillen MD [Med Staff - Active Staff] - As soon as possible Activity Restrictions/Additional Instructions: Effusion your eardrops. Call and follow-up with the ENT doctor either Dr. Maximiliano Guillen or Dr. Edu Garcia to have your ear irrigated to get the wax out. Disposition Disposition: Home, Self Care
--- NOTE | 2022-09-05 10:37 | ED.RN ---
pt kept complaining of the way we irrigate. pt wanted it to be sucked out.
== END 2022-09-05 10:39 | disposition home or self-care (01) ==
PROVIDERS: Emergency Provider Emergency Medicine; PCP Internal Medicine; Visit Provider Emergency Medicine
DX: H61.22 Impacted cerumen, left ear (principal); Z79.899 Other long term (current) drug therapy
CPT/HCPCS: 99283

== ENCOUNTER 2023-04-23 09:49 | Emergency (ER) | payer MEDICARE, MEDICAID, SELFPAY ==
[2023-04-23 09:51] VITALS: BP 160/78; PULSE 84; RESP 14; TEMP 36.4; O2SAT 98; BMI 27.4
--- NOTE | 2023-04-23 10:21 | CT_ITS ---
STUDY: CT SOFT TISSUE NECK WITH CONTRAST REASON FOR EXAM: Male, 67 years old. Painful swallowing RADIATION DOSAGE (If Supplied By Facility): CTDIvol = ( 15.19 ) mGy, DLP = ( 497.16 ) mGycm TECHNIQUE: The patient was scanned in a multi-detector CT scanner. High resolution transaxial imaging was performed following intravenous administration of IV 75mL [id number]-370. Sagittal and coronal images were reconstructed. Individualized dose optimization techniques were used for this CT. COMPARISON: None. FINDINGS: Atherosclerotic plaque calcification of the aortic arch. Normal bilateral parotid glands. Normal bilateral publishing editor spaces. Normal bilateral parapharyngeal spaces. Normal bilateral carotid spaces. Normal bilateral sublingual and submandibular glands and spaces. Normal visualized nasopharynx. Normal retropharyngeal space. Normal perivertebral space. Normal visualized bilateral faucial tonsils. The visualized tongue, tongue base and oropharynx are normal. The visualized cervical lymph nodes (levels I-) are within normal size limits, and maintain normal morphology. There is no demonstrated solid or cystic mass lesion. There is no abnormal contrast enhancement. Normal epiglottis, bilateral vallecula and hypopharynx. The pre-epiglottic and paraglottic adipose spaces are normal. Normal visualized bilateral piriform sinuses, aryepiglottic folds, vocal cords, and arytenoid-cricoid articulations. Normal subglottic trachea. Normal bilateral lobes of the thyroid gland. Normal visualized pulmonary apices. Small mucosal polyp or retention cyst along the inferior medial wall of the left maxillary sinus. There is degenerative changes of the cervical spine. CT/Soft Tissue Neck WITH Contrast IMPRESSION: No acute abnormality is seen. Electronically Signed: Elmer Armenta MD at 12:39 EDT ,
--- NOTE | 2023-04-23 10:28 | EDS_ITS ---
HPI History of Present Illness Chief Complaint: Sore Throat Informant: patient Narrative Narrative: 67-year-old male presenting to the emergency room with the chief complaint of sore throat. Patient states that just over a week ago he developed sneezing congestion headache and cough. He was seen at urgent care was told that he may have a sinus infection and was started on amoxicillin. He went back today noting that those symptoms are improved but now he has a sore throat. He states that his throat feels dry and its hard for him to swallow. He states he chronically has issues swallowing due to reflux and sometimes things get stuck. He states that he was sent here for a possible scope. He tried to call ENT but was unable to secure a follow-up appointment until early next week he denies any fever.. [facility] Medical History GERD (gastroesophageal reflux disease) History of BPH History of chronic back pain History of depression History of gastroesophageal reflux (GERD) History of pulmonary embolism History of seizure disorder Home Medications cholecalciferol (vitamin D3) 25 mcg (1,000 unit) capsule 1,000 unit PO DAILY 08/11/13 [History Last Taken Unknown] esomeprazole magnesium 40 mg capsule,delayed release 20 mg PO BID 08/11/13 [History Last Taken Unknown] loperamide 2 mg capsule 2 mg PO Q4H PRN PRN Diarrhea 08/11/13 [History Last Taken Unknown] lovastatin 20 mg tablet 40 mg PO QHS 08/11/13 [History Last Taken Unknown] oxybutynin chloride 5 mg tablet 10 mg PO DAILY 08/11/13 [History Last Taken Unknown] phenytoin 50 mg chewable tablet 100 mg PO TID 08/11/13 [History Last Taken 06/01/16 23:00] tamsulosin 0.4 mg capsule 0.4 mg PO DAILY 08/11/13 [History Last Taken Unknown] albuterol sulfate 90 mcg/actuation aerosol inhaler 2 puff inhalation TID PRN Sob &/Or Wheezing 04/01/15 [History Last Taken 06/02/16 07:00] cyclobenzaprine 10 mg tablet 10 mg PO TID PRN Muscle Spasm #20 tabs 03/01/16 [Rx Last Taken Unknown] loratadine 10 mg tablet 10 mg PO DAILY 03/01/16 [History Last Taken Unknown] ketotifen fumarate 0.025 % (0.035 %) eye drops 1 - 2 drp EACH EYE BID 04/08/16 [History Last Taken Unknown] tobramycin 0.3 %-dexamethasone 0.1 % eye drops,suspension 1 drp EACH EYE PRN PRN irritation 04/08/16 [History Last Taken Unknown] fluticasone propionate 220 mcg/actuation HFA aerosol inhaler 2 puff inhalation DAILY 04/21/16 [History Last Taken 06/02/16 07:00] benzonatate 100 mg capsule 100 mg PO TID PRN PRN Cough 05/29/16 [History Last Taken Unknown] duloxetine 30 mg capsule,delayed release 30 mg PO DAILY 12/31/16 [History Last Taken Unknown] cephalexin 500 mg capsule 500 mg PO Q12 #14 caps 10/14/21 [Rx Last Taken Unknown] Allergy/AdvReac Type Severity Reaction Status Date / Time celecoxib [From Celebrex] Allergy Other Verified 04/23/23 09:51 cisapride monohydrate Allergy Unknown Verified 04/23/23 09:51 [From Propulsid] loratadine [From Claritin] Allergy Other Verified 04/23/23 09:51 salsalate Allergy Vomiting Verified 04/23/23 09:51 aspirin AdvReac Nausea/Vom/ Verified 04/23/23 09:51 Diarrhea nabumetone [From Relafen] AdvReac Nausea Verified 04/23/23 09:51 oseltamivir phosphate AdvReac Nausea Verified 04/23/23 09:51 [From Tamiflu] Family History Brother Asthma Diabetes CAD (coronary artery disease) Seizures CVA (cerebral vascular accident) Mother Diabetes Surgical History s/p egd with dilitation S/P hemorrhoidectomy S/P tonsillectomy and adenoidectomy Social History Smoking Status: Never smoker alcohol intake: never ROS ROS ED Constitutional Constitutional ED: Denies chills or weight loss Eyes Eyes: Denies change in vision or diplopia ENT ENT ED: Reports rhinorrhea, sore throat and other Details: Sneezing difficulty swallowing ; Denies ear pain Cardiovascular Cardiovascular: Denies chest pain, orthopnea, palpitations or racing heartbeat Respiratory/Chest Respiratory/Chest: Denies cough, dyspnea or orthopnea Gastrointestinal Gastrointestinal: Denies abdominal pain, diarrhea, nausea or vomiting Genitourinary Genitourinary ED: Denies dysuria, hematuria or urinary frequency Musculoskeletal Musculoskeletal: Denies arthralgias or myalgias Integumentary Denies abscess or rash Neurologic Neurologic: Reports headache(s); Denies weakness Psychiatric Psychiatric: Denies anxiety, depression, suicidal ideation or suicidal thoughts Endocrine Endocrinology: Denies polydipsia, polyphagia or polyuria Allergic/Immunologic Allergic/Immunologic ED: Denies mouth swelling, tongue swelling or urticaria EXAM Physical Exam Const Vital Signs: 04/23/23 09:51 Temperature 97.6 F L Temperature Source Temporal Pulse Rate 84 Respiratory Rate 14 Blood Pressure 160/78 H Blood Pressure Mean 105 Pulse Ox 98 Oxygen Delivery Method Room Air Positive well nourished and well developed General Appearance ED: well developed HEENT Reports normocephalic, head/scalp atraumatic, TM's clear and moist mucous membranes HEENT Narrative: Patient has pharyngeal erythema. There is swelling of the soft palate and uvula. Patient appears to be handling secretions normally. There is no stridor. Tympanic Membrane ED: Yes TM's clear Eyes PERRL and EOMs intact bilaterally Neck no lymphadenopathy, supple and no JVD Resp normal respiratory effort and clear to auscultation bilaterally Cardio regular rate, regular rhythm and no murmurs GI normal to inspection, nondistended, normoactive bowel sounds and non-tender Palpation: soft Back/Spine no CVA tenderness and normal ROM Extremity normal to inspection General Extremety ED: Negative for edema General Extremity: Negative for edema Neuro oriented x3 and CN's II-XII intact bilaterally Sensorium / Orientation: alert Motor Exam: strength 5/5 throughout Psych mental status grossly normal Mood & Affect: Negative for depressed or tearful Skin no rashes or lesions noted and no wounds MDM MDM MDM Narrative Medical decision making narrative: Clinically the patient is presenting either as a viral URI with uveitis versus environmental allergen with uveitis. White count is normal at 7.3. I did check a Monospot as the symptoms have been present for a week and this was negative. His strep COVID influenza and RSV were ordered earlier this week by the urgent care and returned negative so I did not feel compelled to repeat those. He appears well-hydrated. Patient is very worried about an obstruction in his throat. A CT of the neck with IV contrast was obtained which does not demonstrate any abscess or impending obstruction. I gave him a dose of Decadron. At this point he is already discontinued his antibiotic. I do think that this is reasonable. I would recommend him continuing Benadryl and Pepcid at home for 2 days. He was advised on cold liquids and continued use of his throat lozenges. Lab Data Attestation: I reviewed the patient's lab results. Labs: Laboratory Results - last 24 hr 04/23/23 10:30 WBC 7.3 RBC 4.79 Hgb 15.0 Hct 44.1 MCV 92.1 MCH 31.3 MCHC 34.0 RDW Std Deviation 42.5 RDW Coeff of [place] 12.6 Plt Count 197 MPV 11.4 Immature Gran % (Auto) 0.300 Neut % (Auto) 78.4 H Lymph % (Auto) 9.1 L [place] % (Auto) 8.6 Eos % (Auto) 2.6 Baso % (Auto) 1.0 Absolute Neuts (auto) 5.7 Absolute Lymphs (auto) 0.66 L Nucleated RBC % 0 Sodium 142 Potassium 3.3 L Chloride 107 Carbon Dioxide 32.0 Anion Gap 3 L BUN 14 Creatinine 0.72 Estim Creat Clear Calc 112.27 Est GFR (MDRD) Af Amer 140 Est GFR (MDRD) Non-Af 116 BUN/Creatinine Ratio 19.3 Glucose 126 H Calcium 8.7 Monoscreen Negative Radiography Diagnostic Testing: Clinical Impression(s) from Imaging Studies Soft Tissue Neck CT 04/23/23 10:21 IMPRESSION: No acute abnormality is seen. Electronically Signed: Elmer Armenta MD at 12:39 EDT , Discharge Plan Triage Chief Complaint: Sore Throat ED Provider: Román Rivera Dx/Rx/DC Orders Prescriptions: No Action loperamide 2 MG capsule 2 mg PO Q4H PRN PRN (Reason: Diarrhea) phenytoin 50 MG tablet,chewable 100 mg PO TID tamsulosin 0.4 MG capsule 0.4 mg PO DAILY esomeprazole magnesium 40 MG capsule 20 mg PO BID lovastatin 20 MG tablet 40 mg PO QHS Patient Comments: CHOLESTEROL oxybutynin chloride 5 MG tablet 10 mg PO DAILY cholecalciferol (vitamin D3) 1,000 UNIT capsule 1,000 unit PO DAILY albuterol sulfate 1 INHALER inhaler 2 puff inhalation TID PRN (Reason: Sob &/Or Wheezing) loratadine 10 MG tablet 10 mg PO DAILY cyclobenzaprine 10 MG tablet 10 mg PO TID PRN (Reason: Muscle Spasm) Qty: 20 0RF fluticasone propionate 1 INHALER inhaler 2 puff inhalation DAILY ketotifen fumarate 5 ML drops 1 - 2 drp EACH EYE BID tobramycin-dexamethasone 1 DROP drops,suspension 1 drp EACH EYE PRN PRN (Reason: irritation) benzonatate 100 MG capsule 100 mg PO TID PRN PRN (Reason: Cough) duloxetine 30 MG capsule,delayed release(DR/EC) 30 mg PO DAILY cephalexin 500 mg capsule 500 mg PO Q12 Qty: 14 0RF Primary Care Provider: Rupali Fitzgerald Referrals: Rupali Fitzgerald MD [Primary Care Provider] -
[2023-04-23] MEDS: dexAMETHasone 10 MG/ML Vial PO.IVFORM (10:40)
[2023-04-23 10:44] LABS: Absolute Lymphocyte Count 0.66 X10^3/uL (0.83-4.51); Absolute Neutrophil Count 5.7 X10^3/uL (2.0-7.7); Basophil# 0.07 X10^3/uL; Eosinophil# 0.19 X10^3/uL; Eosinophils% 2.6 % (0-5); Hematocrit 44.1 % (40-54); Lymphocyte # 0.66 X10^3/ul (0.83-4.51); Lymphocyte % 9.1 % (19-41); Mean Corpuscular Hgb 31.3 pg (27.0-32.0); Mean Corpuscular Volume 92.1 fL (80-94); Mean Platelet Vol. 11.4 fl (6.2-12.0); Monocyte# 0.62 X10^3/uL; Monocyte% 8.6 % (0-10); NRBC Flagged by Analyzer 0 % (0-5); Neutrophil # 5.69 X10^3/uL (2.7-7.7); Neutrophil % 78.4 % (47-70); Platelet Count 197 K/mm3 (150-450); RBC Distribution Width CV 12.6 % (11.6-14.6); RBC Distribution Width SD 42.5 fl (35.1-43.9); Red Blood Count 4.79 M/mm3 (4.6-6.2); White Blood Count 7.3 K/mm3 (4.4-11.0)
[2023-04-23 10:55] LABS: Anion Gap 3 (5-15); BUN 14 mg/dL (7-18); BUN/Creat Ratio 19.3 RATIO (10-20); Calcium,Total 8.7 mg/dL (8.5-10.1); Chloride 107 mmol/L (98-107); Creatinine, Serum 0.72 mg/dL (0.70-1.30); EST Glomerular Filtration Rate 116 mL/min (>60); Est Glom Filt Rate - Afr Amer 140 mL/min (>60); Estimated Creatinine Clearance 112.27 ml/min; Glucose 126 mg/dL (74-106); Potassium 3.3 mmol/L (3.5-5.1); Sodium Level 142 mmol/L (136-145)
[2023-04-23 11:19] LABS: Internal QC Validated? YES +Cl - CLEAR BKGD; Monotest Negative (Negative)
[2023-04-23 11:20] LABS: Record Kit Lot#, Mono 13231163
[2023-04-23 13:43] VITALS: BP 127/82; PULSE 167; RESP 16; O2SAT 98
== END 2023-04-23 13:44 | disposition home or self-care (01) ==
PROVIDERS: Emergency Provider Emergency Medicine; PCP Internal Medicine; Visit Provider Emergency Medicine
DX: J02.9 Acute pharyngitis, unspecified (principal); R05.9 Cough, unspecified; R51.9 Headache, unspecified; K21.9 Gastro-esophageal reflux disease without esophagitis
CPT/HCPCS: 70491; 80048; 85025; 86308; 99283; A4216

== ENCOUNTER 2023-10-30 13:45 | Emergency (ER) | payer MEDICARE, MEDICAID, SELFPAY ==
[2023-10-30 13:47] VITALS: BP 152/77; PULSE 87; RESP 14; TEMP 36.4; O2SAT 96; BMI 28.2
--- NOTE | 2023-10-30 14:04 | EX.ED.UPPERE ---
HPI <NEVILLE Oden - Last Filed: 10/30/23 15:23> History of Present Illness Chief Complaint: General Illness Narrative Narrative: Patient is a 68-year-old male with history of blood clots on Eliquis, hypertension hyperlipidemia, BPH and depression who presents to the emergency department with complaints of right-sided jaw pain. Patient states yesterday he was eating a croissant or something that was harder with bread, he felt a strain in his right jaw, he now is hearing a clicking sound. Patient thinks that something happened with his jaw. He does not have any pain in his teeth. He has no redness or swelling. Patient is able to eat and drink is able to open and close his jaw. He states when he does he does feel little tightness as well as a clicking sound. PFS <NEVILLE Oden - Last Filed: 10/30/23 15:23> REPLACED BY [facility] Medical History GERD (gastroesophageal reflux disease) History of BPH History of chronic back pain History of depression History of gastroesophageal reflux (GERD) History of pulmonary embolism History of seizure disorder Home Medications cholecalciferol (vitamin D3) 25 mcg (1,000 unit) capsule 1,000 unit PO DAILY 08/11/13 [History Last Taken Unknown] esomeprazole magnesium 40 mg capsule,delayed release 20 mg PO BID 08/11/13 [History Last Taken Unknown] loperamide 2 mg capsule 2 mg PO Q4H PRN PRN Diarrhea 08/11/13 [History Last Taken Unknown] lovastatin 20 mg tablet 40 mg PO QHS 08/11/13 [History Last Taken Unknown] oxybutynin chloride 5 mg tablet 10 mg PO DAILY 08/11/13 [History Last Taken Unknown] phenytoin 50 mg chewable tablet 100 mg PO TID 08/11/13 [History Last Taken 06/01/16 23:00] tamsulosin 0.4 mg capsule 0.4 mg PO DAILY 08/11/13 [History Last Taken Unknown] albuterol sulfate 90 mcg/actuation aerosol inhaler 2 puff inhalation TID PRN Sob &/Or Wheezing 04/01/15 [History Last Taken 06/02/16 07:00] cyclobenzaprine 10 mg tablet 10 mg PO TID PRN Muscle Spasm #20 tabs 03/01/16 [Rx Last Taken Unknown] loratadine 10 mg tablet 10 mg PO DAILY 03/01/16 [History Last Taken Unknown] ketotifen fumarate 0.025 % (0.035 %) eye drops 1 - 2 drp EACH EYE BID 04/08/16 [History Last Taken Unknown] tobramycin 0.3 %-dexamethasone 0.1 % eye drops,suspension 1 drp EACH EYE PRN PRN irritation 04/08/16 [History Last Taken Unknown] fluticasone propionate 220 mcg/actuation HFA aerosol inhaler 2 puff inhalation DAILY 04/21/16 [History Last Taken 06/02/16 07:00] benzonatate 100 mg capsule 100 mg PO TID PRN PRN Cough 05/29/16 [History Last Taken Unknown] duloxetine 30 mg capsule,delayed release 30 mg PO DAILY 12/31/16 [History Last Taken Unknown] cephalexin 500 mg capsule 500 mg PO Q12 #14 caps 10/14/21 [Rx Last Taken Unknown] Allergy/AdvReac Type Severity Reaction Status Date / Time celecoxib [From Celebrex] Allergy Other Verified 10/30/23 13:50 cisapride monohydrate Allergy Unknown Verified 10/30/23 13:50 [From Propulsid] loratadine [From Claritin] Allergy Other Verified 10/30/23 13:50 salsalate Allergy Vomiting Verified 10/30/23 13:50 aspirin AdvReac Nausea/Vom/ Verified 10/30/23 13:50 Diarrhea nabumetone [From Relafen] AdvReac Nausea Verified 10/30/23 13:50 oseltamivir phosphate AdvReac Nausea Verified 10/30/23 13:50 [From Tamiflu] Family History Brother Asthma Diabetes CAD (coronary artery disease) Seizures CVA (cerebral vascular accident) Mother Diabetes Surgical History s/p egd with dilitation S/P hemorrhoidectomy S/P tonsillectomy and adenoidectomy Social History Smoking Status: Never smoker alcohol intake: never ROS <Mynor Aslanides, [employer] - Last Filed: 10/30/23 15:23> ROS ED ROS Narrative Constitutional: Negative for fever, chills, weight loss, weakness Eyes: Negative for vision loss, vision change, double vision ENT: Negative for any sore throat, ear pain, congestion. Positive right-sided jaw pain Cardiovascular: Negative for any chest pain, tightness, palpitations Respiratory: Negative for any cough, sputum production, hemoptysis, dyspnea, dyspnea on exertion, orthopnea Gastrointestinal: Negative for any abdominal pain, nausea, vomiting, diarrhea, constipation, blood in stool, blood in vomit : Negative for any urinary frequency, dysuria, retention, blood in urine Muscle skeletal: Negative for any neck pain, back pain Neurological: Negative for any headache, syncope, dizziness Skin: Negative for any rashes, itching, abrasions, lacerations Psychiatric: Negative for any depression, anxiety, stress, suicidal ideation, homicidal ideation Hematologic: Negative for any excessive bruising, easy bleeding EXAM <NEVILLE Oden - Last Filed: 10/30/23 15:23> Physical Exam Narrative Exam Narrative: Vital signs reviewed. HEET: Head normocephalic atraumatic, TMs clear bilaterally. Posterior pharynx is clear, moist mucous membranes. Nares clear bilaterally. Patient has no trismus. Patient is able to open and close his jaw, I am unable to appreciate any cracking or dislocation. Patient's be complete sentences. Patient has no significant discomfort opening or closing his mouth. Neck: Supple with no lymphadenopathy or tenderness. No signs of meningismus. Cardiac: Regular rate and rhythm no murmurs gallops or rubs, equal peripheral pulses bilaterally. Respiratory: Lungs clear to auscultation bilaterally. No chest tenderness. Abdomen: Soft, nontender, nondistended. No abdominal bruit or pulsatile masses. No hepatosplenomegaly Extremities: No peripheral edema, no signs of gross trauma or deformity. Active full range of motion of all extremities. Neuro: Cranial nerves II through XII intact, no focal neurological deficits. Skin: Clean dry and intact with no rash, purpura, petechiae, vesicles or pustules. Backs/flank: No CVA tenderness, no midline spinal tenderness, no deformity. Psych: Normal mood and affect. No SI, HI or acute psychosis. Const Vital Signs: 10/30/23 13:47 10/30/23 14:03 Temperature 97.6 F L Temperature Source Temporal Pulse Rate 87 Respiratory Rate 14 Respiratory Pattern Normal Blood Pressure 152/77 H Blood Pressure Mean 102 Pulse Ox 96 Oxygen Delivery Method Room Air Positive well nourished and well developed General Appearance ED: well developed [facility] <NEVILLE Oden - Last Filed: 10/30/23 15:23> [facility] Treatment and Re-Evaluation Narrative: Differential diagnosis includes however is not limited to: TMJ, jaw dislocation, ligamental injury, inflammation, dental caries Patient's physical examination was grossly unremarkable, patient appears generally well, vital signs are stable. Secondary to the patient's concern, patient will receive a CT scan of the maxillofacial bones looking for any temporomandibular joint dysfunction, deformity. All radiologic examinations were read, reviewed by the emergency department attending. From these reads, a plan of care will be put in place. Patient CT scan shows some arthritis in the TMJ joints, however there is no dislocation, there is no lesion. Patient will use Tylenol, will rest his jaw using softer foods. He is instructed return for any worsening symptoms. At this time, has no red flag signs. Patient stable for discharge <Jatinder Doss MD - Last Filed: 10/30/23 16:14> [facility] Narrative Medical decision making narrative: Dr. Doss: I have personally performed a face to face assessment of the patient and have reviewed the KRISTEL Note. I performed a substantive portion of the visit including all aspects of the following. My amrtinez findings include: History is right TMJ and mandibular pain with crackling noise with movement. Exam is afebrile. Vital signs noted. No clinical jaw dislocation. Mild tenderness TMJ and angle of mandible. Medical Decision Making: Patient has large concern for jaw fracture. CT was obtained and radiology report reviewed, no evidence of mandible dislocation or fracture. Reassurance. [id number] anti-inflammatories versus analgesia. Follow-up primary care and/or otolaryngology. Patient states he has both established. Discharge. Other additions or changes: [None] Discharge Plan Triage Chief Complaint: General Illness Other Complaint: Upper Extremity Injury ED Midlevel Provider: Mynor Tamayo ED Provider: Jatinder Doss Dx/Rx/DC Orders Clinical Impression: TMJ arthritis Instructions: Arthritis: Exercise, ED TMJ Syndrome Prescriptions: No Action loperamide 2 MG capsule 2 mg PO Q4H PRN PRN (Reason: Diarrhea) phenytoin 50 MG tablet,chewable 100 mg PO TID tamsulosin 0.4 MG capsule 0.4 mg PO DAILY esomeprazole magnesium 40 MG capsule 20 mg PO BID lovastatin 20 MG tablet 40 mg PO QHS Patient Comments: CHOLESTEROL oxybutynin chloride 5 MG tablet 10 mg PO DAILY cholecalciferol (vitamin D3) 1,000 UNIT capsule 1,000 unit PO DAILY albuterol sulfate 1 INHALER inhaler 2 puff inhalation TID PRN (Reason: Sob &/Or Wheezing) loratadine 10 MG tablet 10 mg PO DAILY cyclobenzaprine 10 MG tablet 10 mg PO TID PRN (Reason: Muscle Spasm) Qty: 20 0RF fluticasone propionate 1 INHALER inhaler 2 puff inhalation DAILY ketotifen fumarate 5 ML drops 1 - 2 drp EACH EYE BID tobramycin-dexamethasone 1 DROP drops,suspension 1 drp EACH EYE PRN PRN (Reason: irritation) benzonatate 100 MG capsule 100 mg PO TID PRN PRN (Reason: Cough) duloxetine 30 MG capsule,delayed release(DR/EC) 30 mg PO DAILY cephalexin 500 mg capsule 500 mg PO Q12 Qty: 14 0RF Primary Care Provider: Rupali Fitzgerald Referrals: Rupali Fitzgerald MD [Primary Care Provider] - Activity Restrictions/Additional Instructions: Please follow-up outpatient. Disposition Disposition: Home, Self Care Discharge Date/Time: 10/30/23 15:34
--- NOTE | 2023-10-30 14:24 | CT_ITS ---
EXAM: CT MAXILLOFACIAL WITHOUT INTRAVENOUS CONTRAST CLINICAL INDICATION: jaw pain TECHNIQUE: Helically acquired images were obtained of the face without intravenous contrast. This CT exam was performed using one or more of the following dose reduction techniques: automated exposure control, adjustment of the mA and/or kV according to patient size, and/or use of iterative reconstruction technique. COMPARISON: No relevant prior studies available. FINDINGS: BONES/JOINTS: Mild degenerative change of the temporomandibular joints noted consisting of joint space narrowing and flattening of the articular surface of the mandibular condyle. Ventricles otherwise intact. No evidence of dental disease. Nasal septum is deviated to the right of midline associated with a right-sided septal spur and small left-sided rambo bullosa. SOFT TISSUES: Normal. No focal subcutaneous swelling. No discrete fluid collections. ORBITS: Normal. Both globes are unremarkable. Extraocular muscles are normal. Retrobulbar fat appears unremarkable. SINUSES: A 2 cm left maxillary sinus mucus retention cyst/polyp is noted. MASTOID AIR CELLS: Unremarkable as visualized. Clear. CT/Sinus/Facial Bone IMPRESSION: 1. No acute facial or orbital fracture. 2. Degenerative changes of the temporomandibular joints. As above. Electronically Signed: Giancarlo Ansari MD at 14:56 EDT ,
--- NOTE | 2023-10-30 15:33 | ED.RN ---
pt refusing to wait to have vital signs at this time. this rn expplains that it will only take a second for rn to find monitor. pt expresses desire to leave
== END 2023-10-30 15:34 | disposition home or self-care (01) ==
PROVIDERS: Emergency Provider Emergency Medicine; PCP Internal Medicine; Visit Provider Emergency Medicine
DX: M26.643 Arthritis of bilateral temporomandibular joint (principal); M54.9 Dorsalgia, unspecified; I10 Essential (primary) hypertension; E78.5 Hyperlipidemia, unspecified; N40.0 Benign prostatic hyperplasia without lower urinary tract symptoms; F32.A Depression, unspecified; Z79.01 Long term (current) use of anticoagulants; Z86.711 Personal history of pulmonary embolism
CPT/HCPCS: 70486; 99283

== ENCOUNTER 2025-03-30 10:52 | Emergency (ER) | payer MEDICARE, MEDICAID, SELFPAY ==
[2025-03-30 10:53] VITALS: BP 173/88; PULSE 82; RESP 16; TEMP 36.2; O2SAT 97; BMI 62.9
--- NOTE | 2025-03-30 11:03 | VDLE_ITS ---
Reason For Study Reason For Study: Right leg pain RIGHT GSV is normal. CFV is compressible, spontaneous, phasic, competent and demonstrates normal augmentation. FV is compressible, spontaneous, phasic, competent and demonstrates normal augmentation. POP V is compressible, spontaneous, phasic, competent and demonstrates normal augmentation. T/P Trunk is compressible. PTV is compressible. RT PerV is compressible. Procedure This is a venous duplex using B-mode, color flow and spectral Doppler. Exam performed portable in ED. A preliminary report was called and/or faxed to Dr. Cruz. VL/Venous Duplex US, Unilateral Interpretation Summary Deep veins of the right lower extremity are patent and compressible segmentally . There is no evidence of right lower extremity deep vein thrombosis. Valvular competence appears intact within the p roximal deep venous system on the right . The right great saphenous vein appears patent and compressible segmentally. Ordering Physician: Carlos Cruz Referring Physician: Rupali Fitzgerald Performed By: Annie Knight RVT
--- NOTE | 2025-03-30 11:03 | ED.VIS.LOWEX ---
HPI History of Present Illness Chief Complaint: Lower Extremity Injury Informant: patient Narrative Narrative: 69-year-old presenting for right calf and distal posterior thigh pain that he noticed since last night. He wears compression socks, usually pulls them all the way up over his knees and folds them down, and right where the top of that folds over at the proximal calf is where he is having pain on the right. He thinks he had a more swollen calf yesterday compared with the other side, although he states the look symmetric now. He states his skin looked red where the tops of the compression socks are last night but he states it looks better now. States he has been compliant with his apixaban which he is on because of blood clots in the leg that went to the lung, and he was not anticoagulated when he developed those but he does not know why. States after discussing with the nurse over the phone he was directed to the ED to rule out DVT. He states he is mobile, denies any recent immobilization or hospitalization/surgery or injury to the leg. [facility] Medical History (Updated 03/30/25 @ 11:[address] Carlos Cruz MD) DVT (deep venous thrombosis) GERD (gastroesophageal reflux disease) History of seizure disorder History of chronic back pain History of pulmonary embolism History of gastroesophageal reflux (GERD) History of depression History of BPH Home Medications ?Medication ?Instructions ?Recorded ?Last Taken ?Type cholecalciferol (vitamin D3) 25 1,000 unit PO DAILY 08/11/13 Unknown History mcg (1,000 unit) capsule esomeprazole magnesium 40 mg 20 mg PO BID 08/11/13 Unknown History capsule,delayed release loperamide 2 mg capsule 2 mg PO Q4H PRN PRN Diarrhea 08/11/13 Unknown History lovastatin 20 mg tablet 40 mg PO QHS 08/11/13 Unknown History oxybutynin chloride 5 mg tablet 10 mg PO DAILY 08/11/13 Unknown History phenytoin 50 mg chewable tablet 100 mg PO TID 08/11/13 06/01/16 23:00 History tamsulosin 0.4 mg capsule 0.4 mg PO DAILY 08/11/13 Unknown History albuterol sulfate 90 mcg/actuation 2 puff inhalation TID PRN Sob &/Or 04/01/15 06/02/16 07:00 History aerosol inhaler Wheezing cyclobenzaprine 10 mg tablet 10 mg PO TID PRN Muscle Spasm #20 03/01/16 Unknown Rx tabs loratadine 10 mg tablet 10 mg PO DAILY 03/01/16 Unknown History ketotifen fumarate 0.025 % (0.035 1 - 2 drp EACH EYE BID 04/08/16 Unknown History %) eye drops tobramycin 0.3 %-dexamethasone 0.1 1 drp EACH EYE PRN PRN irritation 04/08/16 Unknown History % eye drops,suspension fluticasone propionate 220 2 puff inhalation DAILY 04/21/16 06/02/16 07:00 History mcg/actuation HFA aerosol inhaler benzonatate 100 mg capsule 100 mg PO TID PRN PRN Cough 05/29/16 Unknown History duloxetine 30 mg capsule,delayed 30 mg PO DAILY 12/31/16 Unknown History release cephalexin 500 mg capsule 500 mg PO Q12 #14 caps 10/14/21 Unknown Rx Allergy/AdvReac Type Severity Reaction Status Date / Time celecoxib (From Celebrex) Allergy Other Verified 03/30/25 10:53 cisapride monohydrate (From Allergy Unknown Verified 03/30/25 10:53 Propulsid) loratadine (From Claritin) Allergy Other Verified 03/30/25 10:53 salsalate Allergy Vomiting Verified 03/30/25 10:53 aspirin AdvReac Nausea/Vom/ Verified 03/30/25 10:53 Diarrhea nabumetone (From Relafen) AdvReac Nausea Verified 03/30/25 10:53 oseltamivir phosphate (From AdvReac Nausea Verified 03/30/25 10:53 Tamiflu) Family History Brother Asthma Diabetes CAD (coronary artery disease) Seizures CVA (cerebral vascular accident) Mother Diabetes Surgical History s/p egd with dilitation S/P tonsillectomy and adenoidectomy S/P hemorrhoidectomy Social History Smoking Status: Never smoker alcohol intake: never ROS ROS ED Constitutional Constitutional ED: Denies chills or fever(s) Cardiovascular Cardiovascular: Reports leg edema; Denies chest pain or syncope Respiratory/Chest Respiratory/Chest: Denies dyspnea Gastrointestinal Gastrointestinal: Denies abdominal pain, nausea or vomiting Musculoskeletal Musculoskeletal: Reports back pain and extremity pain; Denies neck pain Integumentary Denies Abrasions, rash or wounds Neurologic Neurologic: Denies headache(s) or weakness EXAM Physical Exam Const Vital Signs: 03/30/25 10:53 Temperature 97.1 F L Temperature Source Temporal Pulse Rate 82 Respiratory Rate 16 Blood Pressure 173/88 H Blood Pressure Mean 116 Pulse Ox 97 Oxygen Delivery Method Room Air Positive well nourished and well developed General Appearance ED: well developed and NAD Neck full ROM and supple Resp normal respiratory effort Back/Spine normal ROM and normal to inspection Extremity normal to inspection and full ROM Extremity Narrative: No calf tenderness. I see no asymmetry. There may be mild edema both lower legs but it is symmetric. Only distal. He has compression socks on, I remove them both, he has markings in the proximal calves from the compression socks that look symmetric and there is no sign of infection or erythema or purpura or petechia. There may be some varicosities and some of the veins in his legs. None of them are particularly tender or feel thrombosed there is no palpable cords including the right distal posterior thigh where he is also having some pain. Popliteal fossa is nontender and benign. Full range of motion throughout all joints of the lower extremities and intact pulses. Neuro oriented x3, no focal motor deficits and no sensory deficits noted Sensorium / Orientation: alert Psych mental status grossly normal and thought process normal Skin no wounds Rashes: no rashes MDM MDM MDM Narrative Medical decision making narrative: Patient requesting an ultrasound to evaluate for DVT due to being advised to have that done by nurse in the doctor's office. This was obtained and the medication reconciliation technician discussed with me, the study is normal. Patient is reassured I recommend leaving his compression stocking off of his right lower extremity, at least, for a day or 2 and following up. Discharge Plan Triage Chief Complaint: Lower Extremity Injury ED Provider: Carlos Cruz Dx/Rx/DC Orders Clinical Impression: Lower extremity pain, right, Anticoagulated on apixaban Instructions: ED Leg Cramps Prescriptions: No Action loperamide 2 MG capsule 2 mg PO Q4H PRN PRN (Reason: Diarrhea) phenytoin 50 MG tablet,chewable 100 mg PO TID tamsulosin 0.4 MG capsule 0.4 mg PO DAILY esomeprazole magnesium 40 MG capsule 20 mg PO BID lovastatin 20 MG tablet 40 mg PO QHS Patient Comments: CHOLESTEROL oxybutynin chloride 5 MG tablet 10 mg PO DAILY cholecalciferol (vitamin D3) 1,000 UNIT capsule 1,000 unit PO DAILY albuterol sulfate 1 INHALER inhaler 2 puff inhalation TID PRN (Reason: Sob &/Or Wheezing) loratadine 10 MG tablet 10 mg PO DAILY cyclobenzaprine 10 MG tablet 10 mg PO TID PRN (Reason: Muscle Spasm) Qty: 20 0RF fluticasone propionate 1 INHALER inhaler 2 puff inhalation DAILY ketotifen fumarate 5 ML drops 1 - 2 drp EACH EYE BID tobramycin-dexamethasone 1 DROP drops,suspension 1 drp EACH EYE PRN PRN (Reason: irritation) benzonatate 100 MG capsule 100 mg PO TID PRN PRN (Reason: Cough) duloxetine 30 MG capsule,delayed release(DR/EC) 30 mg PO DAILY cephalexin 500 mg capsule 500 mg PO Q12 Qty: 14 0RF Primary Care Provider: Rupali Fitzgerald Referrals: Rupali Fitzgerald MD [Primary Care Provider] - As Needed Activity Restrictions/Additional Instructions: Ultrasound today in the ED of your leg is normal. We would advise maybe leaving your compression stocking off of at least the right leg for the next day or 2 to see how things go. If it still bothers you, follow-up with your doctor. Print Language: Kosovan Disposition Disposition: Home, Self Care
[2025-03-30 11:52] VITALS: BP 170/82; PULSE 70; RESP 16; TEMP 36.7; O2SAT 98
== END 2025-03-30 12:00 | disposition home or self-care (01) ==
LOC: ED 11:59
PROVIDERS: Emergency Provider Emergency Medicine; PCP Internal Medicine; Visit Provider Emergency Medicine
DX: M79.604 Pain in right leg (principal); Z86.711 Personal history of pulmonary embolism; Z86.718 Personal history of other venous thrombosis and embolism; Z79.01 Long term (current) use of anticoagulants
CPT/HCPCS: 93971; 99282